=== PATIENT | male | born 1975 ===

== ENCOUNTER 2023-10-30 12:46 | Inpatient (IN) | payer OTHER, SELFPAY ==
[2023-10-30] VITALS (9 sets, daily range): BP systolic 97–149; BP diastolic 59–98; BMI 37.4
--- NOTE | 2023-10-30 08:18 | ED.GENMED ---
History of Present Illness
General
Chief Complaint: Chest Pain
Time Seen by Provider: 10/30/23 08:05
Travel History
Have you had any contact with someone who has COVID-19?: No
Do you have any symptoms of coronavirus? Fever > 100 degrees, chills, cough, shortness of breath, sore throat, loss of taste or smell, muscle aches, or headache?: No
History of Present Illness
History of Present Illness:
48-year-old male with history of hypertension, hyperlipidemia, tobacco abuse, and discoid lupus presents to the emergency department via EMS from [facility] due to left-sided chest pain rating to the jaw that began this
morning. Pain is episodic and does resolve spontaneously on occasion. No pain at present. Does note that the pain is pleuritic. Also noted to be febrile at 102 Fahrenheit, received 324 mg chewable aspirin and route. Has been a resident at the
[facility] facility for roughly 1 month. Denies any back pain, vomiting, dysuria, or leg swelling. Patient is adopted so has no knowledge of his family medical history
Review of Systems
Review of Systems
Allergies reviewed?: Yes
All Other Systems: ROS reviewed and negative except as documented in HPI and ROS
Phy Exam
Physical Exam
Physical Exam:
GEN: Nontoxic in appearance, no immediate distress, grossly diaphoretic
Eyes: PERRLA, EOMs intact, no scleral icterus
HENT: NCAT, oral mucosa moist, no JVD
Lungs: Tachypneic, no accessory muscle use, clear lungs
Cardiac: Tachycardic, regular, no murmurs or rubs
Abdomen: S, NT, ND, NABS, no masses or hepatosplenomegaly
Neuro: AO x 3
MSK: No gross deformity or ecchymosis. No edema. No digital clubbing
Skin: No rashes, petechiae. Normal color, no pallor or jaundice.
Psych: Calm, cooperative, proper hygiene
Scores
Heart Score for Chest Pain Patients
STEMI patient?: No
History: Slightly or Non-Suspicious
ECG: Normal
Age: </= 45 years
Risk Factors: >/= 3 Risk Factors or History of CAD
Troponin: </= Normal Limit
Heart Score for Chest Pain Patients: 2
Heart Score Risk: 2.5% MACE over next 6 weeks
Course
Orders/Labs/Results
Orders:
Orders
10/30/23 08:05
ECG [Electrocardiogram (*1)] Urgent
Reason for Study: Chest Pain
EKG- Treatment ONCE
10/30/23 08:17
0.9% Sodium Chloride 1000 ml [Nss] 1,000 ml IV BOLUS
CR Chest - 2 Views Urgent
Comment:
Reason For Exam: fever/chest pain
10/30/23 08:38
COVID-19 Antigen Urgent
Source: Nasal Swab
Urinalysis Reflex To Culture Urgent
Date Specimen was Collected: 10/30/23
Time Specimen was Collected: 08:34
Urine Microscopic Reflex Cult Urgent
Influenza A+B Rapid Molecular Urgent
CURT Source: Nasal Swab
Specimen Description:
Urine Culture Urgent
CURT Source: U
Specimen Description:
Date Specimen was Collected: 10/30/23
Time Specimen was Collected: 08:34
10/30/23 08:44
Complete Blood Count/With Diff Urgent
Comprehensive Metabolic Panel Urgent
Lactic Acid Q4H
Comment: CANCEL 2nd LACTIC ACID IF 1st LACTIC ACID IS LESS THAN 2
Procalcitonin Urgent
PCT Algorithmm Indication: Respiratory
Prothrombin Time Urgent
Troponin I Urgent
Blood Culture Q30M
CURT Source: Blood/Venous
Specimen Description:
10/30/23 08:45
Blood Culture Q30M
CURT Source: Blood/Venous
Specimen Description:
10/30/23 09:29
CefTRIAXone [Rocephin] 1,000 mg IV NOW STA
10/30/23 09:46
0.9% Sodium Chloride 1000 ml [Nss] 1,000 ml IV BOLUS
10/30/23 10:00
Sterile Water [Sterile Water For Injection] 10 ml .ROUTE .STK-MED ONE
10/30/23 10:19
Admit/Transfer Patient As Directed
Co-Sign Provider:
Level of Care: Inpatient admission
Assign to:: Telemetry
Physician / Group: Gloria
Diagnosis: Sepsis, UTI, chest pain
Reason for Telemetry: Chest Pain syndromes
Date to Stop Telemetry: 11/01/23
Time to Stop Telemetry: 11:00
Reason for Hospitalization: IV antibiotics
Expected length of stay greater than two midnights?: Yes
ELOS- Estimated Length of Stay in days: 3
I certify the patient meets the requirements for IP care: Yes
10/30/23 10:20
Code Status As Directed
Resuscitation Status: Full Code
10/30/23 10:22
Ibuprofen [Motrin] 600 mg PO NOW STA
10/30/23 10:23
CT Abd/pel Without Iv Or Oral Routine
Comment:
Reason For Exam: Sepsis, UTI
10/30/23 12:30
Lactic Acid Q4H
Comment: CANCEL 2nd LACTIC ACID IF 1st LACTIC ACID IS LESS THAN 2
11/01/23 11:00
DC Protocol for Telemetry ONCE
Abnormal Lab Results
10/30/23 10/30/23
08:38 08:44
WBC 17.2 H 10^3/uL
(4.8-10.8)
Abs Immat Gran (auto) 0.1 H 10^3/uL
(0-0.05)
Absolute Neuts (auto) 13.9 H 10^3/uL
(1.4-6.5)
Absolute Monos (auto) 1.8 H 10^3/uL
(0.1-0.6)
Neutrophils % 80.8 H %
(42.2-75.2)
Lymphocytes % 8.0 L %
(20.5-51.1)
Monocytes % 10.2 H %
(1.7-9.3)
Glucose 126 H mg/dl
(70-99)
Lactic Acid 2.8 H mmol/L
(0.7-2.0)
Ur Occult Blood Reflex 4+ A
(Negative)
Urine Nitrite (Reflex) Positive A
(Negative)
Leukocyte Esterase Rfl 2+ A
(Negative)
Urine WBC (Reflex) 70-80 A /HPF
(0-5)
Urine Bacteria (Reflex) Moderate A
(Negative)
Urine Albumin (Reflex) 2+ A
(Neg - Trace)
10/30/23 08:44
10/30/23 08:44
Vital Signs
Initial and Last Documented VS:
Initial Vital Signs
Temp Pulse Resp Pulse Ox
102.6 F H 134 20 99
10/30/23 08:05 10/30/23 08:05 10/30/23 08:05 10/30/23 08:05
Last Documented Vital Signs
Temp Pulse Resp BP Pulse Ox
102.6 F H 114 23 112/85 100
10/30/23 08:05 10/30/23 11:00 10/30/23 11:00 10/30/23 11:00 10/30/23 11:00
MDM/Problems Addressed
MDM/Problems Addressed:
48-year-old male presents from [facility] the complaining of chest pain but is noted to be febrile and diaphoretic on arrival. Workup is consistent with urinary tract infection. He has no abdominal or flank pain on my
evaluation thus I did not feel it is prudent to obtain abdominal imaging particular given the eventual reports of dysuria that the patient noted. From a cardiac standpoint I do not see any evidence for ACS, chest x-ray shows no evidence for
infiltrate. Unclear cause of the patient's chest pain, certainly does have cardiac risk factors and further outpatient cardiac evaluation. Given that he is septic with lactic acidosis will admit for IV antibiotics and fluids
Comment
Comment:
EKG independently interpreted by me shows a sinus tachycardia at a rate of [address] changes concerning for ischemia, QTc of 441
*Critical Care Note
Total Time (30-74mins, 75-104mins- exclusive of procedures): Not Applicable
ED Attending Note
-
Portions of this chart may have been created with voice recognition software.� Occasional wrong word or��sound alike� substitutions may have occurred due to the inherent limitations of voice recognition software.
Discharge Plan
Departure
Patient Disposition: Admit
Date of Disposition: 10/30/23
Time of Disposition: 09:46
Admit to: Med/Surg
Presentation/result/management discussed w/ accepting MD/DO: Hospitalist
Discharge Problem:
Urinary tract infection, Severe sepsis
Prescriptions:
No Action
atorvastatin [Lipitor] 40 mg Tablet
40 mg PO HS
meloxicam [Mobic] 15 mg Tablet
15 mg PO DAILY
amlodipine [Norvasc] 5 mg Tablet
5 mg PO DAILY
aspirin 81 mg Tablet,Delayed Release (Dr/Ec)
81 mg PO DAILY
levothyroxine [Synthroid] 75 mcg Tablet
75 mcg PO DAILY
nortriptyline 25 mg Capsule
25 mg PO DAILY
levetiracetam [Keppra] 250 mg Tablet
250 mg PO BID
hydrocortisone 1 % Cream
1 applic TOPICAL BIDPRN PRN (Reason: topical)
nortriptyline 75 mg Capsule
75 mg PO HS
bismuth subsalicylate [Pepto-Bismol] 262 mg/15 mL Suspension
524 mg PO HS
ibuprofen 400 mg Tablet
400 mg PO BIDPRN PRN (Reason: mild pain)
hydroxychloroquine [Plaquenil] 200 mg Tablet
200 mg PO BID
omeprazole 20 mg Tablet,Delayed Release (Dr/Ec)
20 mg PO DAILY
Referrals:
NONE,* [Family Provider] -
Interventions
Interventions:
*Risk Screen - Suicide Last Done: 10/30/23 08:26
*General Assessment Last Done: 10/30/23 08:26
*Neglect/Abuse Screening Last Done: 10/30/23 08:26
ED- Fall Risk Assessment Last Done: 10/30/23 08:26
*ED COVID-19 Vaccine History Last Done: 10/30/23 08:05
ED- Cardiac Assessment Last Done: 10/30/23 08:26
Discharge Date and Time
Print Language: ZAMBIAN
--- NOTE | 2023-10-30 08:35 | EDRN ---
Received patient via EMS from [facility]. Patient stated that he was woken up by left sided chest pain that went into his left arm around 0200. Denies any SOB. Patient stated that he then developed right sided lower abdominal pain with
nausea. Patient stated that he had a low grade fever at the alf. Patient's urine is cloudy. Denies any urinary symptoms.
[2023-10-30] MEDS: NSS 1000 IV ×4 (08:49→22:19)
[2023-10-30 09:10] LABS: Urine Albumin 2+ (Neg - Trace); Urine Bilirubin Negative (Negative); Urine Character Very Cloudy (Clear); Urine Color Yellow; Urine Glucose Negative (Negative); Urine Ketone Negative (Negative); Urine Leukocyte 2+ (Negative); Urine Nitrite Positive (Negative); Urine Occult Blood 4+ (Negative); Urine Specific Gravity 1.015 (<1.030); Urine Urobilinogen Negative (Neg - 1+)
[2023-10-30 09:11] LABS: % Basophils 0.3 % (0-2); % Eosinophils 0.2 % (0-6); % Immature Granulocytes 0.5 % (0-0.5); % Monocytes 10.2 % (1.7-9.3); % Neutrophils 80.8 % (42.2-75.2); Absolute Basophils 0.1 10^3/uL (0-0.2); Absolute Immature Granulocytes 0.1 10^3/uL (0-0.05); Absolute Lymphocytes 1.4 10^3/uL (1.2-3.4); Absolute Monocytes 1.8 10^3/uL (0.1-0.6); Absolute Neutrophils 13.9 10^3/uL (1.4-6.5); Hematocrit 41.2 % (39.0-52.0); Hemoglobin 14.3 g/dL (13.0-18.0); Mean Corp Hgb Conc. 34.7 g/dL (33.0-37.0); Mean Corpuscular Hgb 28.7 pg (27.0-31.0); Mean Corpuscular Volume 82.7 fL (80.0-94.0); Mean Platelet Volume 9.6 fL (7.4-10.4); Nucleated Red Blood Cells % 0 % (-); Platelet Count 343 10^3/uL (130-400); Red Blood Cell Count 4.98 10^6/uL (4.70-6.10); Red Cell Dist. Width 13.7 % (11.5-14.5); White Blood Cell Count 17.2 10^3/uL (4.8-10.8)
[2023-10-30 09:20] LABS: Urine Bacteria Moderate (Negative); Urine Red Blood Cell 0-2 /HPF (0-2); Urine Squamous Cell 0-2 /LPF (Few); Urine White Cell 70-80 /HPF (0-5)
[2023-10-30 09:20] LABS: INR 1.14; PT 14.4 Sec (11.4-14.6)
[2023-10-30 09:24] LABS: Lactic Acid 2.8 mmol/L (0.7-2.0)
[2023-10-30 09:26] LABS: ALT (SGPT) 21 U/L (0-50); AST (SGOT) 19 U/L (17-59); Albumin 4.3 g/dl (3.5-5.0); Alkaline Phosphatase 95 U/L (38-126); Blood Urea Nitrogen 15 mg/dl (9-20); Calcium 9.8 mg/dl (8.4-10.2); Carbon Dioxide 22 mmol/L (22-30); Chloride 99 mmol/L (98-107); Estimated Creatinine Clearance 118 ml/min; Glucose 126 mg/dl (70-99); Potassium 4.4 mmol/L (3.5-5.1); Sodium 135 mmol/L (135-145); Total Bilirubin 0.6 mg/dl (0.2-1.3); Total Protein 7.9 g/dl (6.3-8.2); eGFR > 60.00
[2023-10-30 09:34] LABS: COVID-19 Antigen Negative (Negative)
[2023-10-30 09:36] LABS: Troponin I < 0.012 ng/ml
[2023-10-30 09:40] LABS: Procalcitonin 0.12 ng/ml (0.0-0.25)
[2023-10-30] MEDS: ROCEPHIN 1000 MG IV (10:02)
--- NOTE | 2023-10-30 10:24 | HPS.HSE ---
Family Physician
-
Family Physician: * NONE
Chief Complaint
-
Chest pain, fever
History of Present Illness
48-year-old male woke up at 2 AM with intermittent left-sided chest pain with radiation down the left arm and subsequently developed fever and lower abdominal pain. Denies flank pain. Denies UTI symptoms. Never had the symptoms in the past.
Limited historian. Transferred from [facility] to the ER for evaluation.
Medical History
Past Medical History
Past Medical History: Reports Other
Additional Past Medical History:
Essential hypertension
Hyperlipidemia
Hypothyroidism
Discoid lupus
Past Surgical History: Reports Other
Additional Past Surgical History:
Right knee arthroscopy
Social History
Tobacco: Smoker
Alcohol: Occasional
Drug: Marijuana
Living: [facility]
Family History
Family History: Adopted
Allergies / Home Medications
Allergies reflects when Allergies were last updated in [employer].
Home Medications with original date entered in [employer]
Allergy/Medication List:
Allergies
Allergy/AdvReac Type Severity Reaction Status Date / Time
acetaminophen [From Tylenol] Allergy Unknown Verified 10/30/23 08:06
Iodinated Contrast Media Allergy Unknown Verified 10/30/23 08:06
Home Medications
amlodipine 5 mg tablet (Norvasc) 5 mg PO DAILY 10/30/23
aspirin 81 mg tablet,delayed release 81 mg PO DAILY 10/30/23
atorvastatin 40 mg tablet (Lipitor) 40 mg PO HS 10/30/23
bismuth subsalicylate 262 mg/15 mL oral suspension (Pepto-Bismol) 524 mg PO HS 10/30/23
hydrocortisone 1 % topical cream 1 applic topical BIDPRN PRN topical 10/30/23
hydroxychloroquine 200 mg tablet (Plaquenil) 200 mg PO BID 10/30/23
ibuprofen 400 mg tablet 400 mg PO BIDPRN PRN mild pain 10/30/23
levetiracetam 250 mg tablet (Keppra) 250 mg PO BID 10/30/23
levothyroxine 75 mcg tablet (Synthroid) 75 mcg PO DAILY 10/30/23
meloxicam 15 mg tablet 15 mg PO DAILY 10/30/23
nortriptyline 25 mg capsule 25 mg PO DAILY 10/30/23
nortriptyline 75 mg capsule 75 mg PO HS 10/30/23
omeprazole 20 mg tablet,delayed release 20 mg PO DAILY 10/30/23
Review of Systems
-
History Source: Patient
A 12 point ROS was completed and negative except as noted: Yes
Cardiac: Reports Chest Pain
Abdomen/GI: Reports Abdominal Pain and Nausea; Denies Vomiting
: Denies Flank Pain
Physical Exam
Vital Signs
Vital Signs
Temp Pulse Resp BP Pulse Ox
102.6 F H 123 26 115/83 99
10/30/23 08:05 10/30/23 09:15 10/30/23 09:15 10/30/23 09:00 10/30/23 09:15
Physical Exam
General: Well Developed, Well Nourished, No Apparent Distress and Comfortable
HEENT: NormoCephalic, Anicteric and Moist mucous membranes
Respiratory: Clear
Cardiac: S1/S2 and Regular Rhythm
GI: Soft, Non Tender and Non Distended
Musculoskeletal: No Clubbing, No Cyanosis and No Edema
Skin: Warm and Dry
Neuro: AO x 3
Hematologic/Lymphatic: No Lymphadenopathy
Psych: Calm
Laboratory Results
-
10/30/23 08:44
10/30/23 08:44
Laboratory Results
PT 14.4 Sec (11.4-14.6) 10/30/23 08:44
INR 1.14 10/30/23 08:44
Lactic Acid 2.8 mmol/L (0.7-2.0) H 10/30/23 08:44
Total Bilirubin 0.6 mg/dl (0.2-1.3) 10/30/23 08:44
AST 19 U/L (17-59) 10/30/23 08:44
ALT 21 U/L (0-50) 10/30/23 08:44
Alkaline Phosphatase 95 U/L (38-126) 10/30/23 08:44
Troponin I < 0.012 ng/ml 10/30/23 08:44
Impression/Plan
-
Sepsis due to UTI -admit to telemetry. Continue antibiotics. Continue IV fluids. Await cultures. Denies history of UTI.
Check CT abdomen/pelvis without contrast, rule out anatomic abnormality, nephrolithiasis, etc.
Atypical chest pain -troponin negative so far. EKG with sinus tachycardia. Monitor on telemetry. Trend troponins. Patient claims he had a stress test a year ago but does not remember the results. Does not recall getting a catheterization.
Essential hypertension -stable.
Hyperlipidemia -atorvastatin.
Hypothyroidism -levothyroxine.
Discoid lupus -controlled on hydroxychloroquine. Topical hydrocortisone.
Obesity due to excess calories
Full code
[2023-10-30] MEDS: MOTRIN 600 MG PO (11:00)
[2023-10-30 15:40] LABS: Troponin I < 0.012 ng/ml
[2023-10-30] MEDS: LOVENOX 40 MG SC (18:17)
[2023-10-30] MEDS: MOTRIN 400 MG PO (18:42)
[2023-10-30] MEDS: LIPITOR 40 MG PO (20:31)
[2023-10-30] MEDS: PLAQUENIL 200 MG PO (20:32)
[2023-10-30] MEDS: KEPPRA 250 MG PO (20:32)
[2023-10-30 20:48] LABS: Troponin I < 0.012 ng/ml
[2023-10-30] MEDS: PAMELOR 75 MG PO (21:00)
[2023-10-30] MEDS: LIDOCAINE 4% PATCH 1 PATCH TOPICAL (21:23)
[2023-10-30] MEDS: TORADOL 15 MG IV (21:25)
[2023-10-31] MEDS: HYDROCORTISONE 1% CREAM 1 APPLIC TOPICAL (01:14)
[2023-10-31 03:33] VITALS: BP 110/60
[2023-10-31] MEDS: SYNTHROID 75 MCG PO (05:53)
[2023-10-31] MEDS: MOTRIN 400 MG PO ×2 (06:23→21:02)
[2023-10-31 07:08] LABS: % Basophils 0.3 % (0-2); % Eosinophils 0.9 % (0-6); % Immature Granulocytes 0.6 % (0-0.5); % Lymphocytes 8.5 % (20.5-51.1); % Monocytes 9.2 % (1.7-9.3); % Neutrophils 80.5 % (42.2-75.2); Absolute Basophils 0.1 10^3/uL (0-0.2); Absolute Eosinophils 0.2 10^3/uL (0-0.7); Absolute Immature Granulocytes 0.1 10^3/uL (0-0.05); Absolute Lymphocytes 1.3 10^3/uL (1.2-3.4); Absolute Monocytes 1.5 10^3/uL (0.1-0.6); Absolute Neutrophils 12.7 10^3/uL (1.4-6.5); Hematocrit 36.9 % (39.0-52.0); Hemoglobin 12.2 g/dL (13.0-18.0); Mean Corp Hgb Conc. 33.1 g/dL (33.0-37.0); Mean Corpuscular Hgb 28.6 pg (27.0-31.0); Mean Corpuscular Volume 86.6 fL (80.0-94.0); Mean Platelet Volume 9.9 fL (7.4-10.4); Nucleated Red Blood Cells % 0 % (-); Platelet Count 263 10^3/uL (130-400); Red Blood Cell Count 4.26 10^6/uL (4.70-6.10); Red Cell Dist. Width 13.6 % (11.5-14.5); White Blood Cell Count 15.8 10^3/uL (4.8-10.8)
[2023-10-31 07:31] LABS: Troponin I < 0.012 ng/ml
[2023-10-31 07:35] VITALS: BP 133/80
[2023-10-31] MEDS: ASPIR LOW (ENTERIC COATED) 81 MG PO (07:39)
[2023-10-31] MEDS: MOBIC 15 MG PO (07:40)
[2023-10-31] MEDS: PAMELOR 25 MG PO (07:40)
[2023-10-31] MEDS: PLAQUENIL 200 MG PO ×2 (07:40→19:56)
[2023-10-31] MEDS: KEPPRA 250 MG PO ×2 (07:40→19:55)
[2023-10-31 07:50] LABS: ALT (SGPT) 20 U/L (0-50); AST (SGOT) 20 U/L (17-59); Albumin 3.3 g/dl (3.5-5.0); Alkaline Phosphatase 77 U/L (38-126); Blood Urea Nitrogen 14 mg/dl (9-20); Calcium 9.2 mg/dl (8.4-10.2); Carbon Dioxide 20 mmol/L (22-30); Chloride 103 mmol/L (98-107); Estimated Creatinine Clearance > 125 ml/min; Glucose 134 mg/dl (70-99); Potassium 4.2 mmol/L (3.5-5.1); Sodium 135 mmol/L (135-145); Total Bilirubin 0.7 mg/dl (0.2-1.3); Total Protein 6.4 g/dl (6.3-8.2); eGFR > 60.00
--- NOTE | 2023-10-31 09:32 | W.PN.HOSP.TC ---
Today's Communication/Plan
-
Bladder scan
Bowel regimen
Continue antibiotics
Await cultures
Assessment / Plan
Assessment / Plan
Gen-AAOx3, NAD, obese
HEENT-NC, AT, anicteric, clear oral mm
Neck-supple
CV-reg, no M, +S1/S2
Lungs-clear B/L
Abd-soft, NT, ND
Ext-no edema
Musculoskeletal-no cyanosis, clubbing
Skin-warm and dry
Neuro-grossly non-focal
Psych-calm, cooperative
Sepsis due to UTI - Continue antibiotics. Continue IV fluids. Await cultures. Denies history of UTI. Fever resolved. WBCs trending down.
Check CT abdomen/pelvis did not reveal nephrolithiasis. No hydronephrosis. Moderate concentric thickening of the distended urinary bladder.
Check bladder scan.
Atypical chest pain -troponin negative so far. Doubt cardiac chest pain. EKG with sinus tachycardia. Monitor on telemetry. Patient claims he had a stress test a year ago but does not remember the results. Does not recall getting a
catheterization.
Constipation -bowel regimen ordered.
Essential hypertension -stable.
Hyperlipidemia -atorvastatin.
Hypothyroidism -levothyroxine.
Discoid lupus -controlled on hydroxychloroquine. Topical hydrocortisone.
Obesity due to excess calories
Full code
Anticipated Discharge: Within 24 hours
Subjective/Interval History
-
Date of Service: October 31, 2023
Patient seen and examined. Complaining of mild intermittent chest pain lasting less than a minute. Not pleuritic. Denies shortness of breath. No pain currently. Now with mild bilateral flank pain.
Objective Data
-
Labs:
Laboratory Results
10/31/23
06:42
WBC 15.8 H
Hgb 12.2 L
Hct 36.9 L
Plt Count 263 D
Sodium 135
Potassium 4.2
Chloride 103
Carbon Dioxide 20 L
BUN 14
Creatinine 0.9
Glucose 134 H
Calcium 9.2
Total Bilirubin 0.7
AST 20
ALT 20
Alkaline Phosphatase 77
Vital Signs:
Vital Signs
Temp Pulse Resp BP Pulse Ox
98.2 F 106 19 133/80 99
10/31/23 07:35 10/31/23 07:35 10/31/23 07:35 10/31/23 07:35 10/31/23 07:35
I&O
10/30/23 10/31/23 11/01/23
06:59 06:59 06:59
Intake Total 960 / 960
Output Total 1750 / 1750
Balance -790 / -790
Review of Systems
-
History Source: Patient
All other systems: Reviewed and negative
[2023-10-31 11:00] VITALS: BP 130/83
[2023-10-31] MEDS: STERILE WATER FOR INJECTION 10 ML IV (11:11)
[2023-10-31] MEDS: MIRALAX 17 GRAMS PO (11:13)
[2023-10-31] MEDS: ROCEPHIN 1000 MG IV (11:13)
[2023-10-31] MEDS: COLACE 100 MG PO ×2 (11:13→19:55)
--- NOTE | 2023-10-31 11:31 | CM ---
Patient admitted from [facility]
DX sepsis/UTI, cx(P).
Plan: back to [facility] once stable.
[facility]
Report# [id number]
[2023-10-31 15:00] VITALS: BP 145/95
[2023-10-31] MEDS: LOVENOX 40 MG SC (17:17)
[2023-10-31 19:43] VITALS: BP 134/90
[2023-10-31] MEDS: PAMELOR 75 MG PO (21:02)
[2023-10-31] MEDS: LIDOCAINE 4% PATCH 1 PATCH TOPICAL (21:02)
[2023-10-31] MEDS: LIPITOR 40 MG PO (21:02)
[2023-10-31 23:43] VITALS: BP 139/100
[2023-11-01 03:26] VITALS: BP 120/83
[2023-11-01] MEDS: SYNTHROID 75 MCG PO (05:23)
[2023-11-01 07:00] VITALS: BP 136/85
[2023-11-01] MEDS: MIRALAX 17 GRAMS PO (07:03)
[2023-11-01] MEDS: PLAQUENIL 200 MG PO (07:03)
[2023-11-01] MEDS: COLACE 100 MG PO (07:03)
[2023-11-01] MEDS: PAMELOR 25 MG PO (07:03)
[2023-11-01] MEDS: KEPPRA 250 MG PO (07:03)
[2023-11-01] MEDS: ASPIR LOW (ENTERIC COATED) 81 MG PO (07:04)
[2023-11-01] MEDS: MOBIC 15 MG PO (07:04)
[2023-11-01 09:18] LABS: % Basophils 0.4 % (0-2); % Eosinophils 2.1 % (0-6); % Immature Granulocytes 0.6 % (0-0.5); % Lymphocytes 11.2 % (20.5-51.1); % Monocytes 8.9 % (1.7-9.3); % Neutrophils 76.8 % (42.2-75.2); Absolute Basophils 0.1 10^3/uL (0-0.2); Absolute Eosinophils 0.3 10^3/uL (0-0.7); Absolute Immature Granulocytes 0.1 10^3/uL (0-0.05); Absolute Lymphocytes 1.5 10^3/uL (1.2-3.4); Absolute Monocytes 1.2 10^3/uL (0.1-0.6); Hematocrit 40.7 % (39.0-52.0); Hemoglobin 13.4 g/dL (13.0-18.0); Mean Corp Hgb Conc. 32.9 g/dL (33.0-37.0); Mean Corpuscular Hgb 28.5 pg (27.0-31.0); Mean Corpuscular Volume 86.6 fL (80.0-94.0); Mean Platelet Volume 9.8 fL (7.4-10.4); Nucleated Red Blood Cells % 0 % (-); Platelet Count 337 10^3/uL (130-400); Red Cell Dist. Width 13.5 % (11.5-14.5)
--- NOTE | 2023-11-01 09:20 | W.PN.HOSP.TC ---
Addendum entered and electronically signed by Mir Castro DO 11/01/23 13:46:
I spoke with [facility], discussed with CORRESPONDENT in the facility.
They were able to confirm that Adrian had a visit to the emergency room on October 10 in [facility] and at that point in time complete spinal MRI including cervical, thoracic, lumbar spine was completed and did not show any pathology to explain his
back pain. CT of the head and cervical spine were unremarkable.
He remains medically stable for discharge back to retirement today. Will continue antibiotics on discharge. Continue PT/OT after discharge, rolling walker prescription provided.
Original Note:
Today's Communication/Plan
-
Add tamsulosin
PT/OT
Obtain records from [place]
Assessment / Plan
Assessment / Plan
Gen-AAOx3, NAD, obese
HEENT-NC, AT, anicteric, clear oral mm
Neck-supple
CV-reg, no M, +S1/S2
Lungs-clear B/L
Abd-soft, NT, ND
Ext-no edema
Musculoskeletal-no cyanosis, clubbing
Skin-warm and dry
Neuro-grossly non-focal
Psych-calm, cooperative
Sepsis due to UTI - Continue antibiotics. Continue IV fluids. Denies history of UTI. Fever resolved. WBCs trending down. Blood culture with contamination. Urine culture with E. coli bacteria, pansensitive. Anticipate discharge on Bactrim.
Check CT abdomen/pelvis did not reveal nephrolithiasis. No hydronephrosis. Moderate concentric thickening of the distended urinary bladder.
Check bladder scan.
Atypical chest pain -troponin negative so far. Doubt cardiac chest pain. EKG with sinus tachycardia. Monitor on telemetry. Patient claims he had a stress test a year ago but does not remember the results. Does not recall getting a
catheterization.
Traumatic back pain -patient claims he fell off a bunk in retirement 2 weeks ago and injured his back. Reportedly was worked up in [facility] 2 weeks ago with negative MRI. Try to obtain records. Consult PT/OT. Increase Motrin dose.
Urinary retention -suspect related to constipation. Cannot rule out BPH. Add tamsulosin. Continue bowel regimen. Last bladder scan 345 cc. Recommend outpatient urology follow-up.
Constipation -bowel regimen ordered. Moving bowels.
Essential hypertension -stable.
Hyperlipidemia -atorvastatin.
Hypothyroidism -levothyroxine.
Discoid lupus -controlled on hydroxychloroquine. Topical hydrocortisone.
Obesity due to excess calories
Full code
Dispo -pending PT/OT input. Potential discharge back to retirement.
Anticipated Discharge: Today
Subjective/Interval History
-
Date of Service: November 01, 2023
Patient seen and examined. Still with back pain, trouble walking.
Objective Data
-
Labs:
Laboratory Results
11/01/23
08:32
WBC Pending
Hgb Pending
Hct Pending
Plt Count Pending
Vital Signs:
Vital Signs
Temp Pulse Resp BP Pulse Ox
97.9 F 94 18 136/85 99
11/01/23 07:00 11/01/23 07:00 11/01/23 07:00 11/01/23 07:00 11/01/23 07:00
I&O
10/31/23 11/01/23 11/02/23
06:59 06:59 06:59
Intake Total 960 / 960 1380 / 1380
Output Total 1750 / 1750 2650 / 2650
Balance -790 / -790 -1270 / -1270
Review of Systems
-
History Source: Patient
All other systems: Reviewed and negative
[2023-11-01] MEDS: FLOMAX 0.400000000000000022 MG PO (09:40)
[2023-11-01] MEDS: MOTRIN 800 MG PO ×2 (09:40→16:09)
[2023-11-01] MEDS: ROCEPHIN 1000 MG IV (09:43)
[2023-11-01] MEDS: STERILE WATER FOR INJECTION 10 ML IV (09:43)
[2023-11-01 11:00] VITALS: BP 147/93
--- NOTE | 2023-11-01 11:11 | CM ---
Addendum entered by Yue Guillermo 11/01/23 15:50:
Per Mark from [facility] they can provide a RW.
Original Note:
Patient for d/c today.
PT/OT recommending therapy post d/c.
TC to [facility] at the [facility] [phone], patient can get outpatient PT/OT, they will transport.
Per Evangelina patient can also be discharged with a RW.
Patient will need scripts for outpatient PT/OT and script for a RW.
Plan: back to [facility] once stable.
[facility]
Report# [phone]
--- NOTE | 2023-11-01 13:44 | W.DS.TRANS ---
DC Summary - [employer]
-
Discharge Instructions:
Discharge Diagnosis/Procedures Sepsis, UTI, urinary retention, constipation
Diet Low Fat,Low Cholesterol
Activity As tolerated
Driving Restrictions No driving
Bathing Restrictions None
Instructions:
Stand-Alone Forms:
Changes to Home Medications: No
Discharge Medications:
DC Medications w/original date entered in [employer]
amlodipine 5 mg tablet (Norvasc) 5 mg PO DAILY Blood Pressure 10/30/23
aspirin 81 mg tablet,delayed release 81 mg PO DAILY Blood Clot Prevention/Tx 10/30/23
atorvastatin 40 mg tablet (Lipitor) 40 mg PO HS High Cholesterol 10/30/23
bismuth subsalicylate 262 mg/15 mL oral suspension (Pepto-Bismol) 524 mg PO HS Gastrointestinal Issue 10/30/23
hydrocortisone 1 % topical cream 1 applic topical BIDPRN PRN topical 10/30/23
hydroxychloroquine 200 mg tablet (Plaquenil) 200 mg PO BID Autoimmune Disorder 10/30/23
levetiracetam 250 mg tablet (Keppra) 250 mg PO BID Seizures 10/30/23
levothyroxine 75 mcg tablet (Synthroid) 75 mcg PO DAILY Thyroid 10/30/23
meloxicam 15 mg tablet 15 mg PO DAILY Pain 10/30/23
nortriptyline 25 mg capsule 25 mg PO DAILY Mental Health 10/30/23
nortriptyline 75 mg capsule 75 mg PO HS Mental Health 10/30/23
omeprazole 20 mg tablet,delayed release 20 mg PO DAILY Gastrointestinal Issue 10/30/23
docusate sodium 100 mg capsule 100 mg PO BID #0 caps 11/01/23
lidocaine 4 % topical patch 1 patch topical HS #0 ea 11/01/23
polyethylene glycol 3350 17 gram oral powder packet (HealthyLax) 17 g PO DAILY #0 ea 11/01/23
sulfamethoxazole 800 mg-trimethoprim 160 mg tablet (Bactrim DS) 1 tab PO BID #14 tabs 11/01/23
tamsulosin 0.4 mg capsule 0.4 mg PO DAILY #0 caps 11/01/23
Home Medication Changes
Pending Results: No
[2023-11-01 15:00] VITALS: BP 145/78
== END 2023-11-01 18:20 | DRG 872 ==
LOC: 4 WEST ACU 12:46
PROVIDERS: Physician Assistant; ADMITTING PHYSICIAN Hospitalist; EMERGENCY PHYSICIAN Emergency Medicine
DX: A41.51 Sepsis due to Escherichia coli [E. coli] (principal); N39.0 Urinary tract infection, site not specified; E87.20 Acidosis, unspecified; R65.20 Severe sepsis without septic shock; I10 Essential (primary) hypertension; E78.5 Hyperlipidemia, unspecified; K59.00 Constipation, unspecified; M54.9 Dorsalgia, unspecified; W06.XXXA Fall from bed, initial encounter; Y93.9 Activity, unspecified; Y92.143 Cell of prison as the place of occurrence of the external cause; F17.200 Nicotine dependence, unspecified, uncomplicated; L93.0 Discoid lupus erythematosus; E66.09 Other obesity due to excess calories; E03.9 Hypothyroidism, unspecified; Z79.890 Hormone replacement therapy; Z88.6 Allergy status to analgesic agent; Z91.041 Radiographic dye allergy status; Z68.37 Body mass index [BMI] 37.0-37.9, adult; Z11.52 Encounter for screening for COVID-19
CPT/HCPCS: 71046; 74176; 80053; 81003; 81015; 83605; 84145; 84484; 85025; 85610; 87040; 87070; 87077; 87086; 87147; 87150; 87186; 87205; 87502; 87811; 93005; 96361; 96374; 97163; 97167; 99284; 99406

== ENCOUNTER 2023-11-02 13:41 | Emergency (ER) | payer OTHER, SELFPAY ==
[2023-11-02 13:44] VITALS: BP 139/109
[2023-11-02 13:45] VITALS: BMI 37.5
--- NOTE | 2023-11-02 14:01 | ED.GENMED ---
History of Present Illness
General
Chief Complaint: Chest Pain
Time Seen by Provider: 11/02/23 13:43
Travel History
Have you had any contact with someone who has COVID-19?: No
Do you have any symptoms of coronavirus? Fever > 100 degrees, chills, cough, shortness of breath, sore throat, loss of taste or smell, muscle aches, or headache?: Yes
Symptoms:: fever
History of Present Illness
History of Present Illness:
HPI: The patient presents with general unwell feeling including fever. He also has increased low back pain. He was recently admitted here with UTI/sepsis.
EXAM:
GENERAL: Well appearing but is in mild, he is febrile
HEENT: Moist oral mucosa
CARDIOVASCULAR: No murmurs,. Tachycardic heart rate, regular rhythm, No chest wall tenderness
PULMONARY: No respiratory distress, breath sounds are clear and equal
ABDOMEN: Soft with no peritoneal signs, no tenderness
NEUROLOGIC: Excellent strength all extremities, no coordination deficits
PSYCHIATRIC: Appropriate mental status, normal insight and judgement
EXTREMITIES: Nontender, no edema, moves all extremities equally
SKIN: No rash, no lesions
TIME OF INITIAL ENCOUNTER: 1:30 PM
NUMBER AND COMPLEXITY OF PROBLEMS ADDRESSED AT THE ENCOUNTER
� Chronic conditions affecting care: High blood pressure, hyperlipidemia,
� Acute Exacerbation and/or Progression of Chronic Illness: This is an acute problem
� Differential Diagnosis includes: UTI, sepsis, bacteremia
AMOUNT AND/OR COMPLEXITY OF DATA TO BE REVIEWED AND ANALYZED
� I performed an independent evaluation of and my interpretation is:
EKG: Sinus 127, normal axis, nonspecific ST abnormality, rate is increased compared to 10/31/2023
CT:
X-rays:
Laboratory Studies: White count today is 10.5, lactic is 1.0. Of note, both of these were elevated a few days ago). Urinalysis shows less number of white cells compared to 3 days ago.
Other:
� Review of other/old records: I reviewed the discharge summary/medical note from yesterday which indicated the patient was having chest pain and had negative troponins. I reviewed chest x-ray report from 2 days ago that was
negative. CAT scan of the abdomen pelvis without contrast from 2 days ago showed some thickening of the urinary bladder with UTI and was also noted the patient has mechanical interbody fusion and posterior mechanical stabilization at L5-S1
� Clinical information was obtained by an independent historian: None needed
� Prescriptions/Medications Considered but not given:
� Further testing considered but not performed:
RISK OF COMPLICATIONS AND/OR MORBIDITY OR MORTALITY OF PATIENT MANAGEMENT
� Social determinants of health affecting care: Patient comes in from [facility]
� Discussion with other providers: I did speak to the corrections officers at bedside
� Escalation of care including admission/observation vs risk of discharge considered: The patient's white count and lactic acid are both improved compared to prior. Although he was tachycardic upon arrival he was also febrile.
His tachycardia is improving on reassessment as of 3:08 PM. Will give a dose of Rocephin here and he will continue Bactrim as an outpatient at the facility.
Phy Exam
Physical Exam
Physical Exam:
See HPI
Scores
Heart Score for Chest Pain Patients
STEMI patient?: Not applicable
Course
Orders/Labs/Results
Orders:
Orders
11/02/23 13:47
Electrocardiogram (*1) Urgent
Reason for Study: Chest Pain
EKG- Treatment ONCE
11/02/23 14:00
Complete Blood Count/With Diff Urgent
Comprehensive Metabolic Panel Urgent
Lactic Acid Q4H
Comment: ON ICE, CANCEL 2ND ORDER IF FIRST LACTIC ACID LEVEL <2
Blood Culture Q30M
CURT Source: Blood/Venous
Specimen Description:
Comment: FROM 2 SEPARATE SITES
11/02/23 14:08
0.9% Sodium Chloride 1000 ml [Nss] 1,000 ml IV BOLUS
11/02/23 14:22
0.9% Sodium Chloride 1000 ml [Nss] 1,000 ml IV BOLUS
Ibuprofen [Motrin] 800 mg .ROUTE .STK-MED ONE
Ibuprofen [Motrin] 800 mg PO NOW STA
11/02/23 14:30
Blood Culture Q30M
CURT Source: Blood/Venous
Specimen Description:
Comment: FROM 2 SEPARATE SITES
11/02/23 14:35
Urinalysis Reflex To Culture Urgent
Date Specimen was Collected: 11/02/23
Time Specimen was Collected: 14:25
Urine Microscopic Reflex Cult Urgent
Urine Culture Urgent
CURT Source: U
Specimen Description:
Date Specimen was Collected: 11/02/23
Time Specimen was Collected: 14:25
11/02/23 14:53
CefTRIAXone [Rocephin] 1,000 mg IV NOW STA
Abnormal Lab Results
11/02/23 11/02/23
14:00 14:35
Abs Immat Gran (auto) 0.1 H 10^3/uL
(0-0.05)
Absolute Neuts (auto) 8.2 H 10^3/uL
(1.4-6.5)
Absolute Monos (auto) 0.7 H 10^3/uL
(0.1-0.6)
Immature Gran % 0.6 H %
(0-0.5)
Neutrophils % 77.8 H %
(42.2-75.2)
Lymphocytes % 13.0 L %
(20.5-51.1)
Sodium 134 L mmol/L
(135-145)
Chloride 96 L mmol/L
(98-107)
Ur Occult Blood Reflex 4+ A
(Negative)
Leukocyte Esterase Rfl 2+ A
(Negative)
Urine RBC 26-30 A /HPF
(0-2)
Urine WBC (Reflex) 30-40 A /HPF
(0-5)
Urine Bacteria (Reflex) Few A
(Negative)
11/02/23 14:00
11/02/23 14:00
Vital Signs
Initial and Last Documented VS:
Initial Vital Signs
Temp Pulse Resp BP Pulse Ox
102.3 F H 132 20 139/109 99
11/02/23 13:44 11/02/23 13:44 11/02/23 13:44 11/02/23 13:44 11/02/23 13:44
Last Documented Vital Signs
Temp Pulse Resp BP Pulse Ox
102.3 F H 118 23 155/83 99
11/02/23 13:44 11/02/23 14:41 11/02/23 14:41 11/02/23 14:41 11/02/23 14:41
*Critical Care Note
Total Time (30-74mins, 75-104mins- exclusive of procedures): Not Applicable
ED Attending Note
-
Portions of this chart may have been created with voice recognition software.� Occasional wrong word or��sound alike� substitutions may have occurred due to the inherent limitations of voice recognition software.
Discharge Plan
Departure
Patient Disposition: Home (Routine Discharge)
Date of Disposition: 11/02/23
Time of Disposition: 15:21
Patient with high blood pressure during this ER visit?: Yes
Discharge Problem:
Acute UTI
Prescriptions:
No Action
atorvastatin [Lipitor] 40 mg Tablet
40 mg PO HS
meloxicam 15 mg Tablet
15 mg PO DAILY
amlodipine [Norvasc] 5 mg Tablet
5 mg PO DAILY
aspirin 81 mg Tablet,Delayed Release (Dr/Ec)
81 mg PO DAILY
levothyroxine [Synthroid] 75 mcg Tablet
75 mcg PO DAILY
nortriptyline 25 mg Capsule
25 mg PO DAILY
levetiracetam [Keppra] 250 mg Tablet
250 mg PO BID
hydrocortisone 1 % Cream
1 applic TOPICAL BIDPRN PRN (Reason: topical)
nortriptyline 75 mg Capsule
75 mg PO HS
bismuth subsalicylate [Pepto-Bismol] 262 mg/15 mL Suspension
524 mg PO HS
hydroxychloroquine [Plaquenil] 200 mg Tablet
200 mg PO BID
omeprazole 20 mg Tablet,Delayed Release (Dr/Ec)
20 mg PO DAILY
lidocaine 4 % Adhesive Patch,Medicated
1 patch topical HS Qty: 0 0RF
polyethylene glycol 3350 [HealthyLax] 17 gram Powder In Packet
17 g PO DAILY Qty: 0 0RF
tamsulosin 0.4 mg Capsule
0.4 mg PO DAILY Qty: 0 0RF
docusate sodium 100 mg Capsule
100 mg PO BID Qty: 0 0RF
sulfamethoxazole-trimethoprim [Bactrim DS] 800-160 mg tablet
1 tab PO BID Qty: 14 0RF
Referrals:
[facility] [Family Provider] -
Activity Restrictions/Additional Instructions:
Your white blood cell count and lactic acid levels are both improved compared to a few days ago. We gave a dose of Rocephin along with IV fluids and Motrin. Continue Bactrim. Return here if worse.
Interventions
Interventions:
*Risk Screen - Suicide Last Done: 11/02/23 14:19
*General Assessment Last Done: 11/02/23 13:50
*Neglect/Abuse Screening Last Done: 11/02/23 14:19
ED- Cardiac Assessment Last Done: 11/02/23 14:41
Discharge Date and Time
Print Language: BULGARIAN
[2023-11-02 14:09] LABS: % Basophils 0.5 % (0-2); % Eosinophils 1.7 % (0-6); % Immature Granulocytes 0.6 % (0-0.5); % Monocytes 6.4 % (1.7-9.3); % Neutrophils 77.8 % (42.2-75.2); Absolute Basophils 0.1 10^3/uL (0-0.2); Absolute Eosinophils 0.2 10^3/uL (0-0.7); Absolute Immature Granulocytes 0.1 10^3/uL (0-0.05); Absolute Lymphocytes 1.4 10^3/uL (1.2-3.4); Absolute Monocytes 0.7 10^3/uL (0.1-0.6); Absolute Neutrophils 8.2 10^3/uL (1.4-6.5); Hematocrit 39.8 % (39.0-52.0); Hemoglobin 13.7 g/dL (13.0-18.0); Mean Corp Hgb Conc. 34.4 g/dL (33.0-37.0); Mean Corpuscular Hgb 28.7 pg (27.0-31.0); Mean Corpuscular Volume 83.4 fL (80.0-94.0); Mean Platelet Volume 9.1 fL (7.4-10.4); Nucleated Red Blood Cells % 0 % (-); Platelet Count 385 10^3/uL (130-400); Red Blood Cell Count 4.77 10^6/uL (4.70-6.10); Red Cell Dist. Width 13.5 % (11.5-14.5); White Blood Cell Count 10.5 10^3/uL (4.8-10.8)
[2023-11-02 14:24] LABS: ALT (SGPT) 24 U/L (0-50); AST (SGOT) 24 U/L (17-59); Albumin 4.3 g/dl (3.5-5.0); Alkaline Phosphatase 91 U/L (38-126); Blood Urea Nitrogen 13 mg/dl (9-20); Carbon Dioxide 27 mmol/L (22-30); Chloride 96 mmol/L (98-107); Estimated Creatinine Clearance > 125 ml/min; Glucose 96 mg/dl (70-99); Potassium 4.5 mmol/L (3.5-5.1); Sodium 134 mmol/L (135-145); Total Bilirubin 0.5 mg/dl (0.2-1.3); Total Protein 8.2 g/dl (6.3-8.2); eGFR > 60.00
[2023-11-02] MEDS: MOTRIN 800 MG PO (14:36)
[2023-11-02] MEDS: NSS 1000 IV ×2 (14:37→15:59)
[2023-11-02 14:41] VITALS: BP 155/83
[2023-11-02 14:47] LABS: Urine Albumin Trace (Neg - Trace); Urine Bilirubin Negative (Negative); Urine Character Slightly Cloudy (Clear); Urine Color Yellow; Urine Glucose Negative (Negative); Urine Ketone Negative (Negative); Urine Leukocyte 2+ (Negative); Urine Nitrite Negative (Negative); Urine Occult Blood 4+ (Negative); Urine Urobilinogen Negative (Neg - 1+); Urine pH 6.5 (5.0-9.0)
[2023-11-02 14:55] LABS: Urine Squamous Cell 0-2 /LPF (Few)
[2023-11-02 14:56] LABS: Urine Bacteria Few (Negative); Urine Red Blood Cell 26-30 /HPF (0-2)
[2023-11-02 14:57] LABS: Urine White Cell 30-40 /HPF (0-5)
[2023-11-02 15:00] VITALS: BP 140/84
[2023-11-02] MEDS: ROCEPHIN 1000 MG IV (15:11)
[2023-11-02 16:22] VITALS: BP 119/47
== END 2023-11-02 17:14 | disposition home or self-care (01) ==
LOC: EMR 13:41
PROVIDERS: EMERGENCY PHYSICIAN Emergency Medicine
DX: N39.0 Urinary tract infection, site not specified (principal); Z87.440 Personal history of urinary (tract) infections
CPT/HCPCS: 99283; 96374; 96361; 80053; 81003; 81015; 83605; 85025; 87040; 87086; 93005

== ENCOUNTER → 2023-11-05 07:32 | Outpatient (REF) | payer OTHER, SELFPAY | LOC: EMG 07:32 | PROVIDERS: ATTENDING PHYSICIAN Nurse Practitioner | DX: R60.9 Edema, unspecified (principal); R20.0 Anesthesia of skin | CPT/HCPCS: 95886; 95910 ==

== ENCOUNTER → 2023-11-07 07:42 | Outpatient (REF) | payer OTHER, SELFPAY | LOC: EMG 07:42 | PROVIDERS: ATTENDING PHYSICIAN Nurse Practitioner | DX: R20.0 Anesthesia of skin (principal) | CPT/HCPCS: 95886; 95909 ==